=== PATIENT | male | born 1945 | race Caucasian/White ===

== ENCOUNTER → 2018-05-17 11:27 | Outpatient (CLI) | payer MEDICARE, OTHER, SELFPAY ==
[2018-05-17 12:40] LABS: Hemoglobin A1C% w Est Avg Glu 6.5 % (4.0-6.0)
[2018-05-17 12:51] LABS: Alanine Aminotransferase 32 IU/L (21-72); Albumin 4.5 g/dL (3.5-5.0); Alkaline Phosphatase 97 U/L (38-126); Aspartate Aminotransferase 36 IU/L (17-59); BUN Creatinine Ratio 17.5 (6-22); Bilirubin Total 0.8 mg/dL (0.2-1.3); Blood Urea Nitrogen 21 mg/dL (9-20); Carbon Dioxide 33 mmol/L (22-32); Chloride 92 mmol/L (98-107); Estimated Glomerular Filt Rate 59.7 mL/min (>60); Globulin 2.2 g/dL (1.7-4.1); Glucose 74 mg/dL (80-110); HEMOLYSIS < 15 (0-50); Potassium 3.8 mmol/L (3.4-5.1); Sodium 135 mmol/L (137-145); Total Protein 6.7 g/dL (6.3-8.2)
== END ==
PROVIDERS: PCP Internal Medicine; Visit Provider Internal Medicine
DX: E78.5 Hyperlipidemia, unspecified (principal); I10 Essential (primary) hypertension; E11.9 Type 2 diabetes mellitus without complications
CPT/HCPCS: 36415; 80053; 83036

== ENCOUNTER → 2018-10-25 14:16 | Outpatient (CLI) | payer MEDICARE, OTHER, SELFPAY ==
--- NOTE | 2018-10-25 14:34 | DI.RAD.S_ITS ---
PROCEDURE: XR CHEST 2V INDICATIONS: cough TECHNIQUE: 2 views of the chest were acquired. COMPARISON: formerly [facility], CHEST 1 VIEW, 09/06/2016, 18:57. formerly [facility], CHEST 2 VIEW, 03/05/2016, 11:58. FINDINGS: Surgical changes and devices: None. Lungs and pleura: No pleural effusions or pneumothorax. Lungs are clear. Mediastinum: Mediastinal contours are normal. Heart size is normal. Bones and chest wall: No suspicious bony abnormalities. Soft tissues appear unremarkable. IMPRESSION: Normal for age, source of current cough symptoms is not seen. Dictated by: Luís Aguilar M.D. on 10/25/2018 at 15:18 Approved by: Luís Aguilar M.D. on 10/25/2018 at 15:18
[2018-10-25 14:57] LABS: Add Manual Diff / Slide Review NO; Basophils Absolute Auto 100 /uL (0-100); Eosinophils Absolute Auto 300 /uL (0-450); Eosinophils Percent Auto 4.4 % (2-4); Hematocrit 45.5 % (41-53); Hemoglobin 15.3 g/dL (13.5-17.5); Lymphocytes Absolute Auto 1100 /uL (1100-4500); Lymphocytes Percent Auto 18.9 % (25-40); Mean Corpuscular HGB Conc 33.6 % (30-36); Mean Corpuscular Hemoglobin 28.6 PG (26-34); Mean Corpuscular Volume 85.2 fL (80-100); Monocytes Absolute Auto 500 /uL (0-900); Monocytes Percent Auto 8.4 % (3-14); Neutrophils Absolute Auto 3900 /uL (1500-7000); Neutrophils Percent Auto 67.3 % (50-75); Platelet Count 175 X10^3/uL (150-400); Red Blood Cell Count 5.34 X10^6/uL (4.5-5.9); Red Cell Distribution Width 13.9 % (11.6-14.8); White Blood Cell Count 5.8 X10^3/uL (4.5-11.0)
[2018-10-25 15:04] LABS: Hemoglobin A1C% w Est Avg Glu 7.9 % (4.0-6.0)
[2018-10-25 15:58] LABS: Alanine Aminotransferase 42 IU/L (21-72); Albumin 4.5 g/dL (3.5-5.0); Alkaline Phosphatase 91 U/L (38-126); Aspartate Aminotransferase 31 IU/L (17-59); BUN Creatinine Ratio 24.2 (6-22); Bilirubin Total 0.7 mg/dL (0.2-1.3); Blood Urea Nitrogen 29 mg/dL (9-20); Carbon Dioxide 27 mmol/L (22-32); Chloride 95 mmol/L (98-107); Estimated Glomerular Filt Rate 59.5 mL/min (>60); Globulin 2.2 g/dL (1.7-4.1); Glucose 144 mg/dL (80-110); HEMOLYSIS < 15 (0-50); Potassium 3.9 mmol/L (3.4-5.1); Sodium 136 mmol/L (137-145); Total Protein 6.7 g/dL (6.3-8.2)
[2018-11-02 13:54] LABS: Testosterone Free 37.8
[2018-11-02 13:55] LABS: Testosterone Total 241
== END ==
PROVIDERS: PCP Internal Medicine; Visit Provider Internal Medicine
DX: E11.9 Type 2 diabetes mellitus without complications (principal); I10 Essential (primary) hypertension; R05 Cough
CPT/HCPCS: 36415; 71046; 80053; 83036; 84402; 84403; 85025

== ENCOUNTER → 2019-02-21 07:48 | Outpatient (CLI) | payer MEDICARE, OTHER, SELFPAY ==
[2019-02-21 09:16] LABS: Hemoglobin A1C% w Est Avg Glu 6.2 % (4.0-6.0)
[2019-02-21 09:33] LABS: Blood Urea Nitrogen 22 mg/dL (9-20); Calcium 10.3 mg/dL (8.4-10.2); Carbon Dioxide 31 mmol/L (22-32); Chloride 93 mmol/L (98-107); Estimated Glomerular Filt Rate > 60.0 mL/min (>60); Glucose 92 mg/dL (80-110); HEMOLYSIS < 15 (0-50); Potassium 3.8 mmol/L (3.4-5.1); Sodium 134 mmol/L (137-145)
== END ==
PROVIDERS: PCP Internal Medicine; Visit Provider Internal Medicine
DX: E11.65 Type 2 diabetes mellitus with hyperglycemia (principal); I10 Essential (primary) hypertension
CPT/HCPCS: 36415; 80048; 83036

== ENCOUNTER → 2019-07-20 08:57 | Outpatient (CLI) | payer MEDICARE, OTHER, SELFPAY ==
[2019-07-20 10:09] LABS: BUN Creatinine Ratio 13.8 (6-22); Blood Urea Nitrogen 18 mg/dL (9-20); Calcium 9.5 mg/dL (8.4-10.2); Carbon Dioxide 31 mmol/L (22-32); Chloride 94 mmol/L (98-107); Cholesterol 114 mg/dL (140-199); Estimated Glomerular Filt Rate 54.1 mL/min (>60); Glucose 144 mg/dL (80-110); HDL Cholesterol 45 mg/dL (40-60); HEMOLYSIS < 15 (0-50); LDL Cholesterol Calculated 54 mg/dL (<100); Potassium 3.7 mmol/L (3.4-5.1); Sodium 137 mmol/L (137-145); Triglycerides 76 mg/dL (35-150)
[2019-07-20 10:38] LABS: Prostate Specific Antigen Scrn 1.88 ng/mL (0.1-4.0)
== END ==
PROVIDERS: PCP Internal Medicine; Visit Provider Internal Medicine
DX: Z12.5 Encounter for screening for malignant neoplasm of prostate (principal); E11.65 Type 2 diabetes mellitus with hyperglycemia; I10 Essential (primary) hypertension; E78.5 Hyperlipidemia, unspecified
CPT/HCPCS: 36415; 80048; 80061; 83036; G0103

== ENCOUNTER → 2019-08-10 09:07 | Outpatient (CLI) | payer MEDICARE, OTHER, SELFPAY ==
--- NOTE | 2019-08-11 14:35 | PM.PFT.1 ---
Pulmonary Function Test Referral & Results Date Patient Seen: 08/10/19 Requesting provider: Brian Pedraza Results: The spirometry demonstrates an FVC of 3.33 L which is 77% of predicted. The FEV1 was measured at 2.87 L which is 91% of predicted. The FEV1/FVC ratio was 86 which is 117% of predicted. Following the administration of bronchodilator there was no appreciable change. Lung volumes show an SVC of 3.55 L which is 78% of predicted. The diffusing capacity was measured at 29.13 which is 90% of predicted. The maximum voluntary ventilation was normal Interpretation: This study demonstrates slightly reduced lung volumes without evidence of obstructive lung disease. This could also be interpreted as normal Clinical correlation suggested
== END ==
PROVIDERS: PCP Internal Medicine; Visit Provider Internal Medicine
DX: R06.02 Shortness of breath (principal)
CPT/HCPCS: 94060; 94726; 94729

== ENCOUNTER → 2019-08-17 09:37 | Outpatient (CLI) | payer MEDICARE, OTHER, SELFPAY ==
--- NOTE | 2019-08-17 09:41 | DI.RAD.S_ITS ---
PROCEDURE: XR CHEST 2V INDICATIONS: Wheezing, dyspnea TECHNIQUE: 2 views of the chest were acquired. COMPARISON: [facility], CR, XR CHEST 2V, 10/25/2018, 14:35. FINDINGS: Surgical changes and devices: None. Lungs and pleura: Lungs are clear. No pleural effusions or pneumothorax. Mediastinum: Mediastinal contours are normal. Heart size is normal. Bones and chest wall: No suspicious bony abnormalities. Chronic right rib fractures as before Soft tissues appear unremarkable. IMPRESSION: No acute disease Dictated by: Barry Darden M.D. on 08/17/2019 at 11:07 Approved by: Barry Darden M.D. on 08/17/2019 at 11:08
== END ==
PROVIDERS: PCP Internal Medicine; Visit Provider Internal Medicine
DX: R06.2 Wheezing (principal); R06.00 Dyspnea, unspecified
CPT/HCPCS: 71046

== ENCOUNTER → 2019-08-29 07:46 | Outpatient (CLI) | payer MEDICARE, OTHER, SELFPAY ==
--- NOTE | 2019-08-29 07:47 | DI.ECHO.S_ITS ---
[facility]+ [facility] +---------+ : : [address] : [place] [address] : : : : [id number] : : : : Phone: [phone]+ Echocardiogram Report + + :Name: EDY POLANCO Study Date: 08/29/2019 Height: 70 in : :[employer] Weight: 210 lb : : Gender: Male BSA: 2.1 m2 : :: 1945 Age: 74 yrs BP: 142/88 mmHg: :Reason For Study: DYSPNEA : : Performed By: [facility] Staff : :Referring: VEDA MARRERO R : + + Interpretation Summary 1) Normal left ventricular size, wall motion, and systolic function (EF 55- 60%). 2) Normal right ventricular size and function. 3) No significant valvular abnormalities. 4) Pulmonary artery pressures cannot be estimated because of the lack of a measurable TR jet velocity. 5) No prior Echo available for comparison. Procedure: A two-dimensional transthoracic echocardiogram with color flow and Doppler was performed. The study quality was technically adequate. Prior echo performed on 08/28/16. The patient was in normal sinus rhythm during the exam. Left Ventricle: The left ventricle is normal in size. There is mild concentric left ventricular hypertrophy. Left ventricular systolic function is normal. The ejection fraction is estimated to be 55-60%. Left ventricular wall motion is normal. Right Ventricle: The right ventricle is normal size. Right ventricular systolic function is at the lower limits of normal. Atria: The left atrial size is normal. Right atrial size is normal. The interatrial septum is intact with no evidence for an atrial septal defect. Mitral Valve: The mitral valve leaflets appear mildly thickened, but open well. There is trace mitral regurgitation. Aortic Valve: The aortic valve is trileaflet. The aortic valve opens well. There is no aortic valve stenosis. No aortic regurgitation is present. Tricuspid Valve: The tricuspid valve is normal in structure and function. There is trace tricuspid regurgitation. Pulmonary artery pressures cannot be estimated because of the lack of a measurable TR jet velocity. Pulmonic Valve: The pulmonic valve is not well visualized. There is trace pulmonic regurgitation. Great Vessels: The aortic root is normal size. The ascending aorta is at the upper limits of normal in size. The pulmonary artery is normal size. The inferior vena cava was not well visualized. Pericardium/ Pleura There is no pericardial effusion. There is no pleural effusion. MMode/2D Measurements & Calculations LVIDd: 4.3 cm LVOT diam: 2.2 cm LVIDs: 3.0 cm Ao root diam: 3.2 cm FS: 29.7 % Aortic Jxn: 2.9 cm EPSS: 0.70 cm asc Aorta Diam: 3.7 cm IVSd: 1.5 cm LVPWd: 1.2 cm LV collado. diameter/BSA (cm/m^2): 2.0 LV sys. diameter/BSA (cm/m^2): 1.4 LA A2 area: 18.1 cm2 RA long axis: 4.5 cm LA A4 area: 23.2 cm2 RA area: 10.5 cm2 LA length (vol): 5.4 cm RA vol: 20.9 ml LA vol: 66.2 ml RA : 9.8 ml/m2 LA vol index: 31.1 ml/m2 TAPSE: 1.7 cm Doppler Measurements & Calculations Ao V2 max: 89.8 cm/sec LVOT Max Stevan: 75.6 cm/sec Ao V2 mean: 61.0 cm/sec LV V1 max P.3 mmHg Ao max P.2 mmHg LV V1 VTI: 19.9 cm Ao mean P.7 mmHg TEA(I,D): 4.0 cm2 Ao V2 VTI: 18.3 cm TEA(V,D): 3.1 cm2 sev ratio: 1.1 TEA indexed to BSA (cm^2/m^2): 1.9 MV E max stevan: 59.9 cm/sec PA V2 max: 64.2 cm/sec MV A max stevan: 80.4 cm/sec PA V2 mean: 42.0 cm/sec MV E/A: 0.75 PA mean P.83 mmHg Med Peak E' Stevan: 4.7 cm/sec PA Accel Time: 0.08 sec E/E' med: 12.6 Lat Peak E' Stevan: 6.6 cm/sec E/E' lat: 9.1 E/e' average: 10.8 MV dec time: 0.21 sec SV(LVOT): 73.5 ml Reading Physician:09:14 AM
== END ==
PROVIDERS: PCP Internal Medicine; Visit Provider Internal Medicine
DX: R06.00 Dyspnea, unspecified (principal); R06.2 Wheezing
CPT/HCPCS: 93306

== ENCOUNTER → 2020-01-16 08:31 | Outpatient (CLI) | payer MEDICARE, OTHER, SELFPAY ==
[2020-01-16 09:43] LABS: Hemoglobin A1C% w Est Avg Glu 5.9 % (4.0-6.0)
[2020-01-16 09:49] LABS: BUN Creatinine Ratio 25.2 (6-22); Blood Urea Nitrogen 30 mg/dL (9-20); Calcium 10.4 mg/dL (8.4-10.2); Carbon Dioxide 30 mmol/L (22-32); Chloride 96 mmol/L (98-107); Estimated Glomerular Filt Rate 59.9 mL/min (>60); Glucose 226 mg/dL (80-110); HEMOLYSIS < 15 (0-50); Potassium 3.6 mmol/L (3.4-5.1); Sodium 133 mmol/L (137-145)
== END ==
PROVIDERS: PCP Internal Medicine; Referring Provider Internal Medicine; Visit Provider Internal Medicine
DX: E11.9 Type 2 diabetes mellitus without complications (principal); I10 Essential (primary) hypertension
CPT/HCPCS: 36415; 80048; 83036

== ENCOUNTER 2020-03-18 21:48 | Emergency (ER) | payer MEDICARE, OTHER, SELFPAY ==
--- NOTE | 2020-03-18 21:51 | ED_ITS ---
HPI - Head Injury General Chief complaint: Head Injury Stated complaint: Had Fall, Hit Head on Rock, Sore and Dizzy Time Seen by Provider: 03/18/20 21:51 Source: patient Mode of arrival: Ambulatory Limitations: no limitations History of Present Illness HPI Narrative: Former smoker with history of hypertension presents with a chief complaint of a fall with head injury and headache. He was in his normal state of health when walking at a local beach and he tripped and fell forward and hit the side of his head. He denies loss of consciousness nor nausea or vomiting. He denies any use of blood thinners Related Data Home Medications Medication Instructions Recorded Confirmed ASPIRIN (Aspirin EC) 81 mg PO Q DAY #0 06/10/11 01/22/20 Previous Rx's Medication Instructions Recorded Glucose: Home Monitoring Kit kit #1 02/02/17 atorvastatin [Lipitor] 20 mg PO QDAY #90 tab 05/08/19 metoprolol succinate [Toprol XL] 100 mg PO QDAY #90 tab 05/12/19 metformin 1,000 mg tablet See Rx Instructions .ROUTE 08/28/19 .COMPLEX #60 tablet carbidopa ER 50 mg-levodopa 200 mg See Rx Instructions .ROUTE 09/04/19 tablet,extended release .COMPLEX #180 tablet ropinirole 0.5 mg tablet See Rx Instructions .ROUTE 09/04/19 .COMPLEX #180 tablet omeprazole 40 mg capsule,delayed See Rx Instructions .ROUTE 12/15/19 release .COMPLEX #60 capsule lisinopril 40 mg tablet See Rx Instructions .ROUTE 02/07/20 .COMPLEX #90 tablet hydrochlorothiazide 25 mg tablet 25 mg PO QDAY #90 tab 02/26/20 sildenafil 100 mg tablet 100 mg PO DAILY PRN #10 tab 03/11/20 Allergies Allergy/AdvReac Type Severity Reaction Status Date / Time oxycodone [OXYCODONE] Allergy Intermediate mental Verified 01/22/20 09:40 change Review of Systems Constitutional Constitutional: Denies chills, Denies fatigue, Denies fever(s), Denies frequent falls, Reports headache(s), Denies lethargy and Denies weakness Eyes Eyes: Denies change in vision, Denies eye discharge, Denies irritation and Denies loss of vision ENT Ears, Nose, Mouth, and Throat: Denies change in voice, Denies dizziness, Reports headache(s), Denies neck pain, Denies sore throat and Denies throat swelling Cardiovascular Cardiovascular: Denies chest pain, Denies irregular heart rhythm, Denies lightheadedness, Denies palpitations, Denies dyspnea, Denies dyspnea on exertion and Denies orthopnea Respiratory Respiratory: Denies cough, Denies dyspnea, Denies dyspnea on exertion and Denies wheezing Gastrointestinal Gastrointestinal: Denies abdominal pain, Denies change in bowel habits, Denies diarrhea, Denies nausea and Denies vomiting Musculoskeletal Musculoskeletal: Denies neck pain and Denies numbness Integumentary/Breasts Skin/Breast: Denies pruritus, Denies erythema, Denies rash and Denies wounds Neurologic Neurologic: Denies behavioral changes, Denies confusion, Denies dizziness, Denies frequent falls, Reports headache(s), Denies loss of vision, Denies numbness and Denies weakness Psychiatric Psychiatric: Denies anxiety, Denies behavioral changes, Denies confusion, Denies depression, Denies homicidal ideation and Denies suicidal ideation Endocrine Endocrine: Denies fatigue, Denies flushing and Denies palpitations Hematologic/Lymphatic Hematologic/Lymphatic: Denies easy bruising Allergic/Immunologic Allergic/Immunologic: Denies urticaria, Denies throat swelling and Denies wheezing Patient History Medical History Chronic renal failure, stage 2 (mild) (Chronic) Controlled type 2 diabetes mellitus without complication (Chronic 09/29/11) Diverticulosis of large intestine (Inactive 06/10/11) Erectile dysfunction (Chronic) Gastroesophageal reflux disease (Chronic 06/10/11) Hyperlipidemia (Chronic 06/10/11) Hypertension (Chronic 06/10/11) Restless leg syndrome (Chronic) Family History Mother Type II diabetes mellitus Social History marital status: number of children: 2 household members: spouse lives independently: Yes caregiver/support person: No housing: house pets and animals: No education level: college occupational status: other (Retired) Previous occupational history: [employer]/confucianism: [employer] travel history: recent (Fishing trip in [place]) and over 6 months ago (Last July in [place].) 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 Well- nourished, well-developed patient, in mild distress. GCS 15 HEAD: Very minimal palpable contusion of right temporal region EYES: Pupils equal round and reactive. Extraocular motions intact. No scleral icterus. No injection or drainage. No hyphema ENT: Nose without bleeding, purulent drainage. Throat without erythema, tons illar hypertrophy or exudate. Airway patent. NECK: Trachea midline. Non tender CARDIOVASCULAR: Regular rate and rhythm without murmurs, gallops, or rubs. RESPIRATORY: Clear to auscultation. Breath sounds equal bilaterally. No wheezes, rales, or rhonchi. GASTROINTESTINAL: Abdomen soft, non-tender, nondistended. EXTREMITIES: No edema or joint tenderness. BACK: Nontender without deformity or crepitance. No flank tenderness. NEURO: AOx3. SKIN: No rash or erythema of visible areas Initial Vital Signs Initial Vital Signs: Vital Signs Temperature 98.0 F 03/18/20 21:56 Pulse Rate 70 03/18/20 21:56 Respiratory Rate 16 03/18/20 21:56 Blood Pressure 180/85 H 03/18/20 21:56 Pulse Oximetry 99 03/18/20 21:56 Course Orders Ordered: ED Orders 03/18/20 21:59 CT head/brain wo con Stat Discontinued Medications Diphtheria/Tetanus/Acell Pertussis (Adacel) 0.5 ml IM .ONCE ONE Stop: 03/18/20 22:00 Last Admin: 03/18/20 22:15 Dose: 0.5 ml Documented by: JUAN Vital Signs Vital signs: Vital Signs - 8 hr 03/18/20 21:56 03/18/20 22:28 03/18/20 23:05 Temperature 98.0 F Pulse Rate 70 69 65 Respiratory Rate 16 18 18 Blood Pressure 180/85 H Blood Pressure [Right Arm] 146/75 H 152/80 H Pulse Oximetry 99 98 98 MDM - Head Injury Imaging Data CT scan - head: Radiologist's Impression: no bleed Discharge Plan Departure Patient Disposition: Home Clinical Impression: Closed head injury, Concussion without loss of consciousness Concussion Qualifiers: Encounter type: initial encounter Loss of consciousness presence/duration: without LOC Qualified Code(s): S06.0X0A - Concussion without loss of consciousness, initial encounter Discharge Date/Time: 03/18/20 23:40 Activity Restrictions/Additional Instructions: You have a slight concussion and will likely have a mild headache and some nausea for a few days. Avoiding highly stimulating activities and even TV or computers may be helpful in minimizing your symptoms. Avoid activities that will put you at risk for another head injury for at least a week. You can take tylenol or motrin for headache or the prescription Return for worsening or pe rsistent symptoms Please call your eye doctor tomorrow to get seen in follow up within a day or two. I think it would be helpful to get a dilated eye exam. Prescriptions: No Action ASPIRIN (Aspirin EC) 81 mg PO Q DAY Qty: 0 RF: 0 Glucose: Home Monitoring Kit Qty: 1 RF: 0 atorvastatin [Lipitor] 20 mg tablet 20 mg PO QDAY Qty: 90 RF: 3 metoprolol succinate [Toprol XL] 100 mg tablet extended release 24 hr 100 mg PO QDAY Qty: 90 RF: 3 metformin 1,000 mg tablet See Rx Instructions .ROUTE .COMPLEX Qty: 60 RF: 11 ropinirole 0.5 mg tablet See Rx Instructions .ROUTE .COMPLEX Qty: 180 RF: 3 carbidopa-levodopa 50-200 mg tablet extended release See Rx Instructions .ROUTE .COMPLEX Qty: 180 RF: 3 omeprazole 40 mg capsule,delayed release(DR/EC) See Rx Instructions .ROUTE .COMPLEX Qty: 60 RF: 3 lisinopril 40 mg tablet See Rx Instructions .ROUTE .COMPLEX Qty: 90 RF: 1 hydrochlorothiazide 25 mg tablet 25 mg PO QDAY Qty: 90 RF: 3 sildenafil 100 mg tablet 100 mg PO DAILY PRN (Reason: sexual activity) Qty: 10 RF: 0 Referrals: Brian Pedraza MD [Primary Care Provider] -
[2020-03-18 21:56] VITALS: BP 180/85; PULSE 70; RESP 16; TEMP 36.7; O2SAT 99; BMI 26.8
--- NOTE | 2020-03-18 21:59 | DI.CT.S_ITS ---
PROCEDURE: CT HEAD/BRAIN WO CON INDICATIONS: fall, head injury, severe headache, vision change, aspirin TECHNIQUE: Noncontrast 4.5 mm thick angled axial sections acquired from the foramen magnum to the vertex, with coronal and sagittal reformats. For radiation dose reduction, the following was used: automated exposure control, adjustment of mA and/or kV according to patient size. COMPARISON: None. FINDINGS: Image quality: Excellent. CSF spaces: Basal cisterns are patent. No extra-axial fluid collections. The ventricles are symmetric in size and shape. Brain: No intracranial bleeds or masses. There is cerebral volume loss for age, with resultant ventricular and sulcal prominence. There are periventricular and deep white matter chronic small vessel ischemic changes. There is intracranial internal carotid artery and vertebral artery atherosclerosis. Skull and face: Calvarium and visualized facial bones appear intact, without suspicious lesions. Sinuses: Visualized sinuses and mastoids are clear. IMPRESSION: No acute intracranial disease process. Dictated by: Shakira Diaz MD, PhD on 03/19/2020 at 7:34 Approved by: Shakira Diaz MD, PhD on 03/19/2020 at 7:35
[2020-03-18] MEDS: TET,DIPH,PERTUSS(ACELL),VAC/PF 0.5 ML SYRINGE IM (22:15)
[2020-03-18 22:28] VITALS: BP 146/75; PULSE 69; RESP 18; O2SAT 98
[2020-03-18 23:05] VITALS: BP 152/80; PULSE 65; RESP 18; O2SAT 98
== END 2020-03-18 23:40 | disposition home or self-care (01) ==
PROVIDERS: Emergency Provider Emergency Medicine; PCP Internal Medicine
DX: S06.0X0A Concussion without loss of consciousness, initial encounter (principal); W01.0XXA Fall on same level from slipping, tripping and stumbling without subsequent striking against object, initial encounter; Z23 Encounter for immunization
CPT/HCPCS: 70450; 90471; 99284; 90715

== ENCOUNTER 2020-03-26 10:59 | Emergency (ER) | payer MEDICARE, OTHER, SELFPAY ==
[2020-03-26 11:06] VITALS: BP 145/70; PULSE 67; RESP 16; TEMP 36.7; O2SAT 100
--- NOTE | 2020-03-26 11:11 | ED_ITS ---
HPI - General Adult General Chief complaint: Headache Stated complaint: head injury a week ago Time Seen by Provider: 03/26/20 11:04 Source: patient Mode of arrival: Ambulatory Limitations: no limitations History of Present Illness HPI narrative: Patient is a 74-year-old male not on anticoagulation who approximately 1 week ago had a mechanical fall where he hit the right side of his head on some rocks. There was no loss of consciousness. He was seen in the emergency department after the event. Had a head CT which was unremarkable. The next day followed up with his eye doctor because he was having some vision issues. Patient states that his eye doctor told him everything was unremarkable and he does have a follow-up later this week with his eye provider. Patient states that over the past week he has had continued headaches. No nausea. No mood swings. No vomiting. Has had occasional changes in his vision which he describes as a blurry sensation off to the right. This is not consistent. He states he has had a continuous headache over the past week or there are times when his headache gets worse. He does not feel like any of his other symptoms worsen when his headache is worse. He did sleep longer than what he normally does last evening. Called his primary doctor today who sent him to the emergency department for concerns that he may need another head CT. Related Data Home Medications Medication Instructions Recorded Confirmed ASPIRIN (Aspirin EC) 81 mg PO Q DAY #0 06/10/11 01/22/20 Previous Rx's Medication Instructions Recorded Glucose: Home Monitoring Kit kit #1 02/02/17 atorvastatin [Lipitor] 20 mg PO QDAY #90 tab 05/08/19 metoprolol succinate [Toprol XL] 100 mg PO QDAY #90 tab 05/12/19 metformin 1,000 mg tablet See Rx Instructions .ROUTE 08/28/19 .COMPLEX #60 tablet carbidopa ER 50 mg-levodopa 200 mg See Rx Instructions .ROUTE 09/04/19 tablet,extended release .COMPLEX #180 tablet ropinirole 0.5 mg tablet See Rx Instructions .ROUTE 09/04/19 .COMPLEX #180 tablet omeprazole 40 mg capsule,delayed See Rx Instructions .ROUTE 12/15/19 release .COMPLEX #60 capsule lisinopril 40 mg tablet See Rx Instructions .ROUTE 02/07/20 .COMPLEX #90 tablet hydrochlorothiazide 25 mg tablet 25 mg PO QDAY #90 tab 02/26/20 sildenafil 100 mg tablet 100 mg PO DAILY PRN #10 tab 03/11/20 Allergies Allergy/AdvReac Type Severity Reaction Status Date / Time oxycodone [OXYCODONE] Allergy Intermediate mental Verified 03/26/20 11:16 change Review of Systems Constitutional Constitutional: Denies difficulty sleeping, Reports fatigue, Denies fever(s), Denies frequent falls, Reports headache(s) and Denies weakness Eyes Eyes: Reports change in vision ENT Ears, Nose, Mouth, and Throat: Denies vertigo, Denies dizziness, Reports headache(s), Reports disequilibrium and Denies sore throat Cardiovascular Cardiovascular: Denies chest pain and Denies dyspnea Respiratory Respiratory: Denies dyspnea Gastrointestinal Gastrointestinal: Denies abdominal pain, Denies change in bowel habits, Denies diarrhea and Denies nausea Musculoskeletal Musculoskeletal: Denies arthralgias and Denies myalgias Integumentary/Breasts Skin/Breast: Denies rash Neurologic Neurologic: Denies abnormal movements, Denies abnormal speech, Denies behavioral changes, Denies confusion, Denies vertigo, Denies dizziness, Denies frequent falls, Reports headache(s), Reports disequilibrium and Denies weakness Psychiatric Psychiatric: Denies behavioral changes and Denies confusion Endocrine Endocrine: Reports fatigue Hematologic/Lymphatic Hematologic/Lymphatic: Denies easy bleeding and Denies easy bruising Patient History Medical History Chronic renal failure, stage 2 (mild) (Chronic) Controlled type 2 diabetes mellitus without complication (Chronic 09/29/11) Diverticulosis of large intestine (Inactive 06/10/11) Erectile dysfunction (Chronic) Gastroesophageal reflux disease (Chronic 06/10/11) Hyperlipidemia (Chronic 06/10/11) Hypertension (Chronic 06/10/11) Restless leg syndrome (Chronic) Family History Mother Type II diabetes mellitus Social History marital status: number of children: 2 household members: spouse lives independently: Yes caregiver/support person: No housing: house pets and animals: No education level: college occupational status: other (Retired) Previous occupational history: [employer]/congregational: Nondenominational travel history: recent (Fishing trip in [place]) and over 6 months ago (Last July in [place].) 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[employer].), fishing, reading and other (Taking Care of spouse, yard work, motorcycle, wood shop.) Smoking Status: Former smoker Tobacco: How many years used: 5 Smokeless tobacco user: other (Cigarettes) quit status: quit date established (1970) second hand exposure: Yes (Childhood.) alcohol intake: current (Rarely.) substance use type: does not use Smoking Status: Former smoker alcohol intake frequency: 0-2 drinks per day Substance Use Type: does not use Exam Initial Vital Signs Initial Vital Signs: Vital Signs Temperature 98.1 F 03/26/20 11:06 Pulse Rate 67 03/26/20 11:06 Respiratory Rate 16 03/26/20 11:06 Blood Pressure 145/70 H 03/26/20 11:06 Pulse Oximetry 100 03/26/20 11:06 Const General: cooperative, healthy appearing, comfortable, well developed, well groomed and No acute distress Limitations: mental status not altered HENMT Head: normal to inspection and normocephalic Ears: hearing grossly normal bilaterally Mouth: oral mucosae normal Eyes Pupils: PERRL EOM: EOM intact bilaterally Resp Effort & Inspection: normal respiratory effort Auscultation: clear to auscultation bilaterally Cardio Rate: regular rate Rhythm: regular rhythm Skin Lesions: no lesions Rashes: no rashes Neuro General: patient alert, patient awake and patient oriented x3 Cranial Nerves: CN's II-XI intact bilaterally Cognition: normal cognition Speech: speech normal Motor: muscle tone normal throughout Sensory Exam: no sensory deficits noted Extrem General: normal to inspection and capillary refill normal Psych Appearance: grossly normal and well kempt Scores GCS Letty coma scale eye opening: Spontaneous Letty coma scale verbal response: Orientated [facility] coma scale motor response: Obey commands [facility] coma scale total score: 15 Course Vital Signs Vital signs: Vital Signs - 8 hr 03/26/20 11:06 Temperature 98.1 F Pulse Rate 67 Respiratory Rate 16 Blood Pressure 145/70 H Pulse Oximetry 100 Medical Decision Making [facility] Narrative Medical decision making narrative: GCS of 15. Alert oriented x3. Normal neurologic exam. One week out from his mechanical fall. Not on blood thinners. His history and physical exam is very consistent with a post concussive syndrome. No indication for repeat head CT. Spent an extensive amount of time talking about post concussive syndromes with the patient. He has a follow-up with his eye provider on Wednesday this week. He was given reassurance. He was given return precautions and follow-up instructions. He expressed understanding and agreement. Discharge Plan Departure Patient Disposition: Home Clinical Impression: Post concussion syndrome Instructions: DI for Postconcussion Syndrome Activity Restrictions/Additional Instructions: You can take Tylenol for any headaches. Recommend you keep all of your scheduled medical appointments. You have no restrictions on your activity other than avoiding activities that make your symptoms worse. Contact your primary provider for follow-up. Prescriptions: No Action ASPIRIN (Aspirin EC) 81 mg PO Q DAY Qty: 0 RF: 0 Glucose: Home Monitoring Kit Qty: 1 RF: 0 atorvastatin [Lipitor] 20 mg tablet 20 mg PO QDAY Qty: 90 RF: 3 metoprolol succinate [Toprol XL] 100 mg tablet extended release 24 hr 100 mg PO QDAY Qty: 90 RF: 3 metformin 1,000 mg tablet See Rx Instructions .ROUTE .COMPLEX Qty: 60 RF: 11 ropinirole 0.5 mg tablet See Rx Instructions .ROUTE .COMPLEX Qty: 180 RF: 3 carbidopa-levodopa 50-200 mg tablet extended release See Rx Instructions .ROUTE .COMPLEX Qty: 180 RF: 3 omeprazole 40 mg capsule,delayed release(DR/EC) See Rx Instructions .ROUTE .COMPLEX Qty: 60 RF: 3 lisinopril 40 mg tablet See Rx Instructions .ROUTE .COMPLEX Qty: 90 RF: 1 hydrochlorothiazide 25 mg tablet 25 mg PO QDAY Qty: 90 RF: 3 sildenafil 100 mg tablet 100 mg PO DAILY PRN (Reason: sexual activity) Qty: 10 RF: 0 Referrals: Brian Pedraza MD [Primary Care Provider] -
== END 2020-03-26 11:39 | disposition home or self-care (01) ==
PROVIDERS: Emergency Provider Emergency Medicine; PCP Internal Medicine
DX: F07.81 Postconcussional syndrome (principal)
CPT/HCPCS: 99281

== ENCOUNTER → 2020-07-18 15:57 | Outpatient (CLI) | payer MEDICARE, OTHER, SELFPAY ==
[2020-07-18 16:18] LABS: Hemoglobin A1C% w Est Avg Glu 6.7 % (4.0-6.0)
[2020-07-18 16:32] LABS: Alanine Aminotransferase 24 IU/L (<50); Albumin 4.1 g/dL (3.5-5.0); Albumin Globulin Ratio 1.9 (1.0-2.8); Alkaline Phosphatase 108 U/L (38-126); Aspartate Aminotransferase 25 IU/L (17-59); BUN Creatinine Ratio 21.5 (6-22); Bilirubin Total 0.5 mg/dL (0.2-1.3); Blood Urea Nitrogen 26 mg/dL (9-20); Calcium 9.9 mg/dL (8.4-10.2); Carbon Dioxide 33 mmol/L (22-32); Chloride 96 mmol/L (98-107); Estimated Glomerular Filt Rate 58.6 mL/min (>60); Globulin 2.2 g/dL (1.7-4.1); Glucose 163 mg/dL (80-110); HEMOLYSIS < 15 (0-50); Potassium 3.6 mmol/L (3.4-5.1); Sodium 133 mmol/L (137-145); Total Protein 6.3 g/dL (6.3-8.2)
== END ==
PROVIDERS: PCP Internal Medicine; Referring Provider Internal Medicine; Visit Provider Internal Medicine
DX: E11.9 Type 2 diabetes mellitus without complications (principal); I10 Essential (primary) hypertension
CPT/HCPCS: 36415; 80053; 83036

== ENCOUNTER → 2020-10-18 08:39 | Outpatient (CLI) | payer MEDICARE, OTHER, SELFPAY ==
[2020-10-18 09:59] LABS: Hemoglobin A1C% w Est Avg Glu 7.3 % (4.0-6.0)
[2020-10-18 10:29] LABS: Blood Urea Nitrogen 22 mg/dL (9-20); Carbon Dioxide 34 mmol/L (22-32); Chloride 99 mmol/L (98-107); Estimated Glomerular Filt Rate > 60.0 mL/min (>60); Glucose 143 mg/dL (80-110); HEMOLYSIS < 15 (0-50); Potassium 3.5 mmol/L (3.4-5.1); Sodium 134 mmol/L (137-145)
== END ==
PROVIDERS: PCP Internal Medicine; Referring Provider Internal Medicine; Visit Provider Internal Medicine
DX: E11.65 Type 2 diabetes mellitus with hyperglycemia (principal); I10 Essential (primary) hypertension
CPT/HCPCS: 36415; 80048; 83036

== ENCOUNTER → 2021-01-20 08:27 | Outpatient (CLI) | payer MEDICARE, OTHER, SELFPAY ==
[2021-01-20 09:07] LABS: Blood Urea Nitrogen 22 mg/dL (9-20); Calcium 9.9 mg/dL (8.4-10.2); Carbon Dioxide 30 mmol/L (22-32); Chloride 97 mmol/L (98-107); Estimated Glomerular Filt Rate > 60.0 mL/min (>60); Glucose 145 mg/dL (80-110); HEMOLYSIS < 15 (0-50); Potassium 3.4 mmol/L (3.4-5.1); Sodium 133 mmol/L (137-145)
== END ==
PROVIDERS: PCP Internal Medicine; Referring Provider Internal Medicine; Visit Provider Internal Medicine
DX: E11.65 Type 2 diabetes mellitus with hyperglycemia (principal); N18.2 Chronic kidney disease, stage 2 (mild)
CPT/HCPCS: 36415; 80048; 83036

== ENCOUNTER → 2021-02-25 14:56 | Outpatient (CLI) | payer MEDICARE, OTHER, SELFPAY ==
--- NOTE | 2021-02-25 15:01 | DI.RAD.S_ITS ---
PROCEDURE: XR THORACIC SPINE 3V INDICATIONS: posterior back pain TECHNIQUE: 3 views of the thoracic spine were acquired. COMPARISON: [facility], , THORACIC SPINE 3 VIEWS, 03/05/2016, 12:00. FINDINGS: Bones: No fractures or dislocations. No suspicious bony lesions. 12 pairs of ribs are noted, and appear intact where visualized. Multilevel disc desiccation is present throughout the thoracic spine. Minimal anterior osteophytes are present. Soft tissues: No paravertebral stripe thickening. IMPRESSION: Disc space narrowing anterior osteophytes. No visualized acute fracture or dislocation. However, if clinical concern and/or pain persist, short interval imaging followup in 7-10 days is recommended, as occult injury cannot be definitively excluded. Dictated by: Khushboo Mills M.D. on 02/25/2021 at 17:23 Approved by: Khushboo Mills M.D. on 02/25/2021 at 17:24
== END ==
PROVIDERS: PCP Internal Medicine; Referring Provider Registered Nurse; Visit Provider Registered Nurse
DX: M54.9 Dorsalgia, unspecified (principal)
CPT/HCPCS: 72072

== ENCOUNTER → 2021-03-22 09:52 | Outpatient (CLI) | payer MEDICARE, OTHER, SELFPAY ==
--- NOTE | 2021-03-22 09:54 | DI.MRI.S_ITS ---
PROCEDURE: MR SHOULDER RT WO CON INDICATIONS: right shouldre pain TECHNIQUE: Noncontrast oblique coronal T2 fast spin echo with fat saturation, oblique sagittal T1 spin echo and T2 fast spin echo with fat saturation, axial T1 spin echo and T2 fast spin echo with fat saturation through the shoulder. COMPARISON: None. FINDINGS: Image quality: Excellent. Rotator cuff: Partial thickness tear of the distal supraspinatus and infraspinatus tendons involving the articular surface. There is subscapularis tendinitis. Sagittal images demonstrate no rotator cuff muscle atrophy. Bones and bursae: No bone marrow contusions or fractures. Moderate acromioclavicular and glenohumeral joint degeneration. The acromion demonstrates conventional anatomy, without an os acromiale. No pathologic subacromial-subdeltoid or subcoracoid bursal fluid is present. Small glenohumeral joint effusion. Capsule and soft tissues: There is degenerative fraying of the glenoid labrum. Small paralabral cyst adjacent to the inferior labrum. The long head of the biceps tendon demonstrates normal location and morphology. The rotator interval appears normal, without fibrosis. The coracohumeral ligament is normal in thickness. IMPRESSION: 1. Partial thickness tear of the distal supraspinatus and infraspinatus tendons along the articular surface. 2. Subscapularis tendinitis. 3. Moderate acromioclavicular and glenohumeral joint degeneration. 4. Small glenohumeral joint effusion. 5. Degenerative fraying of the glenoid labrum. Small paralabral cyst adjacent to the inferior labrum indicating small labral tears. Dictated by: Amparo Vela M.D. on 03/24/2021 at 8:29 Approved by: Amparo Vela M.D. on 03/24/2021 at 9:43
== END ==
PROVIDERS: PCP Internal Medicine; Referring Provider Registered Nurse; Visit Provider Registered Nurse
DX: M25.511 Pain in right shoulder (principal); M75.111 Incomplete rotator cuff tear or rupture of right shoulder, not specified as traumatic; M75.91 Shoulder lesion, unspecified, right shoulder; M19.011 Primary osteoarthritis, right shoulder; M25.411 Effusion, right shoulder
CPT/HCPCS: 73221

== ENCOUNTER → 2021-03-25 11:18 | Outpatient (CLI) | payer MEDICARE, OTHER, SELFPAY ==
--- NOTE | 2021-03-25 11:19 | DI.MRI.S_ITS ---
PROCEDURE: MR THORACIC SPINE WO CON INDICATIONS: Thoracic pain TECHNIQUE: Noncontrast sagittal T1 spine echo and T2 fast spin echo, sagittal STIR, axial T1 and T2 fast spin echo through the thoracic spine. COMPARISON: None. FINDINGS: Image quality: Excellent. Alignment and Curvature: There is normal bony alignment. Bone Marrow: Marrow is of normal overall signal. No acute vertebral body compression fractures. Spinal Cord: Visualized spinal cord is normal in size and signal. There is a moderate degree of degenerative disc disease from T4 through T11, with disc height reduction and posterior disc bulging. Facet osteoarthritis is moderate at T10-T11 greater on the right than the left with asymmetric mild spinal stenosis at this level associated with this posterior mild impingement. More superiorly the transverse broad-base disc bulge is efface CSF from the anterior thecal sac to a mild degree but do not distort the adjacent cord. Paraspinous Soft Tissues: No paravertebral masses. Miscellaneous: On axial images, central canal and foramina appear widely patent at all scanned levels. IMPRESSION: No compression fracture found, no chronic or recent trauma suspected. [id number] degenerative disc disease present along the thoracic spine from T3 inferiorly to T11. As discussed above this produces a mild degree of anterior spinal stenosis at the disc levels, but no disc herniation is found. Mild spinal stenosis is also seen at T10-T11 from posterior approach due to asymmetric right greater than left facet osteoarthritis. Dictated by: Luís Aguilar M.D. on 03/25/2021 at 12:29 Approved by: Luís Aguilar M.D. on 03/25/2021 at 12:34
== END ==
PROVIDERS: PCP Internal Medicine; Referring Provider Registered Nurse; Visit Provider Registered Nurse
DX: M51.34 Other intervertebral disc degeneration, thoracic region (principal); M48.04 Spinal stenosis, thoracic region
CPT/HCPCS: 72146

== ENCOUNTER → 2021-06-13 10:31 | Outpatient (CLI) | payer MEDICARE, OTHER, SELFPAY ==
[2021-06-13 11:55] LABS: BUN Creatinine Ratio 22.4 (6-22); Blood Urea Nitrogen 22 mg/dL (9-20); Carbon Dioxide 32 mmol/L (22-32); Chloride 99 mmol/L (98-107); Estimated Glomerular Filt Rate > 60.0 mL/min (>60); Glucose 117 mg/dL (80-110); HEMOLYSIS < 15 (0-50); Potassium 3.6 mmol/L (3.4-5.1); Sodium 135 mmol/L (137-145)
[2021-06-13 20:17] LABS: Hemoglobin A1C% w Est Avg Glu 6.3 % (4.0-6.0)
[2021-06-17 14:41] LABS: Prostate Specific Antigen Scrn 1.71 ng/mL (0.1-4.0)
== END ==
PROVIDERS: PCP Internal Medicine; Referring Provider Internal Medicine; Visit Provider Internal Medicine
DX: N18.2 Chronic kidney disease, stage 2 (mild) (principal); E11.9 Type 2 diabetes mellitus without complications; Z12.5 Encounter for screening for malignant neoplasm of prostate; I10 Essential (primary) hypertension; E78.5 Hyperlipidemia, unspecified
CPT/HCPCS: 36415; 80048; 83036; G0103

== ENCOUNTER → 2021-09-12 09:12 | Outpatient (CLI) | payer MEDICARE, OTHER, SELFPAY ==
[2021-09-12 10:32] LABS: Hemoglobin A1C% w Est Avg Glu 6.6 % (4.0-6.0)
[2021-09-12 10:44] LABS: BUN Creatinine Ratio 17.3 (6-22); Blood Urea Nitrogen 18 mg/dL (9-20); Calcium 9.3 mg/dL (8.4-10.2); Carbon Dioxide 33 mmol/L (22-32); Chloride 91 mmol/L (98-107); Estimated Glomerular Filt Rate > 60.0 mL/min (>60); Glucose 176 mg/dL (80-110); HEMOLYSIS < 15 (0-50); Potassium 3.1 mmol/L (3.4-5.1); Sodium 132 mmol/L (137-145)
== END ==
PROVIDERS: PCP Internal Medicine; Referring Provider Internal Medicine; Visit Provider Internal Medicine
DX: E11.65 Type 2 diabetes mellitus with hyperglycemia (principal)
CPT/HCPCS: 36415; 80048; 83036

== ENCOUNTER → 2021-10-13 13:38 | Outpatient (CLI) | payer MEDICARE, OTHER, SELFPAY ==
[2021-10-13 17:22] LABS: COVID19 -Nasal RAPID Negative (Negative)
== END ==
PROVIDERS: PCP Internal Medicine; Referring Provider Physician Assistant; Visit Provider Physician Assistant
DX: Z01.812 Encounter for preprocedural laboratory examination (principal); Z20.822 Contact with and (suspected) exposure to COVID-19
CPT/HCPCS: 87635; C9803

== ENCOUNTER 2021-10-14 07:33 | Day surgery (SDC) | payer MEDICARE, OTHER, SELFPAY ==
[2021-10-14] VITALS (7 sets, daily range): BP systolic 96–138; BP diastolic 47–82; PULSE 65–87; RESP 12–16; TEMP 36.1–36.5; O2SAT 96–98; BMI 35.2
--- NOTE | 2021-10-14 | PATH_ITS ---
[facility] Accession Number: [id number] . 01 Material submitted: . PART A: colon - RANDOM COLON PART B: rectum - RECTAL POLYP X1 . 02 Diagnosis: A. Random Colon, Biopsies: Lymphocytic colitis. Negative for granulomas, dysplasia and malignancy. . B. Rectum, Polyp x1, Biopsy: Tubular adenoma. MRV 10/16/2021 1342 Local . 02 Electronically signed: . Marta Valentino MD, Pathologist NPI- [id number] . 01 Gross description: . Part A: RANDOM COLON: Received in formalin are 3 fragment(s) of kaye, soft tissue measuring 0.4 x 0.3 x 0.2 cm to 0.2 x 0.2 x 0.1 cm submitted entirely in 1 cassette(s) Part B: RECTAL POLYP X1: Received in formalin is 1 fragment(s) of kaye, soft tissue measuring 0.3 x 0.3 x 0.3 cm submitted entirely in 1 cassette(s) /QBJ 10/15/2021 0633 Local . 02 Pathologist provided ICD-10: K52.89, D12.8 . 02 CPT . 381146, [id number] Performed at: 01 [facility] [address], [place], [place] [id number] MD Eligio Osorio MD Phone: [phone] Performed at: 02 [facility] [address] [place], [place] [id number] MD Marta Valentino MD Phone: [phone]
--- NOTE | 2021-10-14 08:06 | PM.HP.1 ---
History of Present Illness History of Present Illness Date Patient Seen: 10/14/21 Time Patient Seen: 08:07 Chief complaint: SDC Narrative: I reach you Dr. Mckeon's note. Stool studies are negative for C diff giardia or typical enteric pathogens. Fecal fat was slightly increased. Patient History Medical History Chronic renal failure, stage 2 (mild) Controlled type 2 diabetes mellitus without complication (09/29/11) Diverticulosis of large intestine (06/10/11) Erectile dysfunction Gastroesophageal reflux disease (06/10/11) Hyperlipidemia (06/10/11) Hypertension (06/10/11) Restless leg syndrome Family & Social History Family History Mother Type II diabetes mellitus Social History: household members spouse lives independently Yes caregiver/support person No Tobacco & Substance use: Smoking Status Former smoker alcohol intake current alcohol intake frequency 0-2 drinks per day Substance Use Type does not use Meds Home Medications and Allergies Home Medications Medication Instructions Recorded Confirmed Type ASPIRIN (Aspirin EC) 81 mg PO Q DAY #0 06/10/11 09/15/21 History Glucose: Home Monitoring Kit kit #1 02/02/17 09/15/21 Rx carbidopa ER 50 mg-levodopa 200 mg See Rx Instructions .ROUTE 11/04/20 09/15/21 Rx tablet,extended release .COMPLEX #180 tablet metoprolol succinate 100 mg 100 mg PO QDAY #90 tab 11/04/20 09/15/21 Rx tablet,extended release 24 hr (Toprol XL) omeprazole 40 mg capsule,delayed See Rx Instructions .ROUTE 11/04/20 09/15/21 Rx release .COMPLEX #180 cap ropinirole 0.5 mg tablet See Rx Instructions .ROUTE 11/04/20 09/15/21 Rx .COMPLEX #180 tablet metformin 500 mg tablet 500 mg PO BID #180 tab 01/21/21 09/15/21 Rx sildenafil (pulm.hypertension) 20 40 - 100 mg PO DAILY PRN #40 tab 01/21/21 09/15/21 Rx mg tablet sucralfate 1 gram tablet 1 g PO QACHS #120 tab 05/26/21 09/15/21 Rx carbidopa 25 mg-levodopa 100 mg 1 tab PO BEDTIME #90 tab 06/17/21 09/15/21 Rx tablet atorvastatin 20 mg tablet (Lipitor) 20 mg PO DAILY #90 tab 08/29/21 09/15/21 Rx hydrochlorothiazide 25 mg tablet 25 mg PO QDAY #90 tab 08/29/21 09/15/21 Rx lisinopril 40 mg tablet 40 mg PO DAILY #90 tab 08/29/21 09/15/21 Rx potassium chloride 10 mEq 10 meq PO DAILY #90 tab 09/15/21 09/15/21 Rx tablet,extended release Allergies Allergy/AdvReac Type Severity Reaction Status Date / Time oxycodone [OXYCODONE] Allergy Intermediate mental Verified 09/15/21 10:21 change Review of Systems Review of Systems ROS: Yes All systems reviewed with the patient and are negative except as otherwise documented Exam Const General: cooperative and comfortable Orientation: alert HENMT Head: normocephalic Ears: external ears normal Nose: external nose normal Face and sinus: normal facial exam Mouth: oral mucosae normal Eyes General: appearance normal, both eyes and all related structures Neck Neck: normal visual inspection Chest Chest: normal inspection of the chest Resp Effort & Inspection: normal respiratory effort Cardio Rate: regular rate GI Inspection: normal to inspection Skin General: no rashes or lesions noted and No jaundice Neuro General: patient alert and moves all extremities Cognition: normal cognition Speech: speech normal Extrem General: no pedal edema Psych Appearance: grossly normal Assessment & Plan Assessment & Plan narrative: 76-year-old male with approximately 6-7 weeks of diarrhea unexplained. Fecal fat is slightly elevated. Colonoscopy is arranged for today. Time Spent With Patient Critical Care time: I spent a total of [] minutes of critical care time on this patient's care today; this time is exclusive of procedural time.
--- NOTE | 2021-10-14 08:10 | PM.PREOP ---
Pre-operative Note COVID-19 COVID-19 status: Negative Result date/Date tested (Pos, Neg/Pending): 10/13/21 Interval Note History & Physical reviewed/Exam performed by Physician: Yes Changes to H&P: Yes ASA Class (for procedural sedation): II
[2021-10-14] MEDS: SODIUM CHLORIDE 0.9% 1,000 ML 84 ML IV (08:36)
--- NOTE | 2021-10-14 09:28 | PM.OP.COLON ---
Operative Date/Time/Diagnoses Date of procedure: 10/14/21 Time of procedure: 09:29 Pre-op diagnosis: Diarrhea Post-op diagnosis: same Procedure & Clinicians Study performed: Colonoscopy with biopsies and cold forceps polypectomy Same procedure as scheduled: Yes Indications: Diarrhea Surgeon: Nasir Barreto Procedure Notes SCOAP/Timeout: Done Procedure in detail: After the risks and benefits were explained, written and verbal informed consent was obtained. The patient was brought into the procedure room and placed into the left lateral decubitus position. Please see nurse yarding supervisor notes for sedation details. The scope was introduced into the mouth through the bite block and advanced under direct visualization to the 2nd portion of the duodenum. The scope was slowly withdrawn carefully examining the mucosa for any defects or lesions. Retroflexed views were accomplished in the stomach. The stomach was decompressed, the scope was then removed from the patient who tolerated the procedure well. Adult colonoscope Bowel prep adequate Scope withdrawal time: 11 minutes Sedation minutes: 19 Complications: none Impression: There was a widely patent subtle anastomosis in the 20 cm from the anal verge range consistent with prior sigmoid colectomy. There was a diminutive polyp in the rectum removed with cold forceps. I did not appreciate any macroscopic colitis throughout. Random colon biopsies were taken for exclusion of microscopic disease. The terminal ileum was interrogated and appeared visually normal. Endoscopic diagnosis 1. Patent sigmoid anastomosis 2. Diminutive rectal polyp Post-procedure Plan for aftercare: 1. Await histopathology 2. Follow-up GI clinic with 3. If the polyp is return adenomatous, repeat colonoscopy will be suggested for 5 years time. Disposition: PACU
== END 2021-10-14 10:10 | disposition home or self-care (01) ==
LOC: ENDO 07:37
PROVIDERS: PCP Internal Medicine; Referring Provider Internal Medicine Gastroenterology; Visit Provider Internal Medicine Gastroenterology
PROC: 0DJD8ZZ Inspection of Lower Intestinal Tract, Via Natural or Artificial Opening Endoscopic (ICD-10-PCS; CPT 45378; principal; 2021-10-14 09:00)
DX: K52.89 Other specified noninfective gastroenteritis and colitis (principal); E11.9 Type 2 diabetes mellitus without complications; Z79.84 Long term (current) use of oral hypoglycemic drugs; I12.9 Hypertensive chronic kidney disease with stage 1 through stage 4 chronic kidney disease, or unspecified chronic kidney disease; N18.2 Chronic kidney disease, stage 2 (mild); E78.5 Hyperlipidemia, unspecified; G25.81 Restless legs syndrome; K57.30 Diverticulosis of large intestine without perforation or abscess without bleeding; D12.8 Benign neoplasm of rectum
CPT/HCPCS: 45380; J2704

== ENCOUNTER → 2021-10-20 09:53 | Outpatient (CLI) | payer MEDICARE, OTHER, SELFPAY ==
[2021-10-20 11:06] LABS: BUN Creatinine Ratio 15.4 (6-22); Blood Urea Nitrogen 16 mg/dL (9-20); Calcium 10.3 mg/dL (8.4-10.2); Carbon Dioxide 32 mmol/L (22-32); Chloride 99 mmol/L (98-107); Estimated Glomerular Filt Rate > 60.0 mL/min (>60); Glucose 145 mg/dL (80-110); HEMOLYSIS < 15 (0-50); Magnesium 1.2 mg/dL (1.6-2.3); Potassium 3.5 mmol/L (3.4-5.1); Sodium 134 mmol/L (137-145)
== END ==
PROVIDERS: PCP Internal Medicine; Referring Provider Internal Medicine; Visit Provider Internal Medicine
DX: E87.6 Hypokalemia (principal); I10 Essential (primary) hypertension
CPT/HCPCS: 36415; 80048; 83735

== ENCOUNTER → 2021-12-18 08:34 | Outpatient (CLI) | payer MEDICARE, OTHER, SELFPAY ==
[2021-12-18 10:08] LABS: COVID19 -Nasal RAPID Negative (Negative)
== END ==
PROVIDERS: PCP Internal Medicine; Referring Provider Internal Medicine; Visit Provider Internal Medicine
DX: Z20.822 Contact with and (suspected) exposure to COVID-19 (principal)
CPT/HCPCS: 87635; C9803

== ENCOUNTER → 2021-12-18 08:35 | Outpatient (CLI) | payer MEDICARE, OTHER, SELFPAY ==
--- NOTE | 2021-12-25 12:01 | PM.PFT.1 ---
Pulmonary Function Test Referral & Results Date Patient Seen: 12/18/21 Requesting provider: Brian Pedraza Results: The spirometry demonstrates an FVC of 3.46 L which is 82% of predicted. The FEV1 was measured at 2.74 L which is 89% of predicted. The FEV1/FVC ratio was 79 which is 110% of predicted. Following the administration of bronchodilator there was no appreciable change Lung volumes show an SVC of 3.67 L which is 81% of predicted. The diffusing capacity was measured at 29.31 which is 90% of predicted. The maximum voluntary ventilation was normal Interpretation: This study demonstrates normal pulmonary function Patient also had PFTs performed in July 2019, which were similarly normal
== END ==
PROVIDERS: PCP Internal Medicine; Referring Provider Internal Medicine; Visit Provider Internal Medicine
DX: R06.02 Shortness of breath (principal); Z87.891 Personal history of nicotine dependence; Z20.822 Contact with and (suspected) exposure to COVID-19; E11.9 Type 2 diabetes mellitus without complications; N18.2 Chronic kidney disease, stage 2 (mild); I10 Essential (primary) hypertension
CPT/HCPCS: 36415; 71046; 80053; 83036; 87635; 94060; 94726; 94729; C9803

== ENCOUNTER → 2021-12-18 08:36 | Outpatient (CLI) | payer MEDICARE, OTHER, SELFPAY ==
--- NOTE | 2021-12-18 08:38 | DI.RAD.S_ITS ---
PROCEDURE: XR CHEST 2V INDICATIONS: cough TECHNIQUE: 2 views of the chest were acquired. COMPARISON: [facility], CR, XR CHEST 2V, 08/17/2019, 9:39. FINDINGS: Surgical changes and devices: None. Lungs and pleura: Lungs are clear. No pleural effusions or pneumothorax. Mediastinum: Mediastinal contours are normal. Heart size is normal. Bones and chest wall: Chronic right rib fractures are unchanged. No suspicious bony abnormalities. Soft tissues appear unremarkable. IMPRESSION: No acute cardiopulmonary disease process. Dictated by: Shakira Diaz MD, PhD on 12/18/2021 at 10:46 Approved by: Shakira Diaz MD, PhD on 12/18/2021 at 10:47
[2021-12-18 10:40] LABS: Hemoglobin A1C% w Est Avg Glu 7.4 % (4.0-6.0)
[2021-12-18 10:41] LABS: Alanine Aminotransferase 13 IU/L (<50); Albumin 3.9 g/dL (3.5-5.0); Albumin Globulin Ratio 1.9 (1.0-2.8); Alkaline Phosphatase 90 U/L (38-126); Aspartate Aminotransferase 27 IU/L (17-59); BUN Creatinine Ratio 21.9 (6-22); Bilirubin Total 0.7 mg/dL (0.2-1.3); Blood Urea Nitrogen 25 mg/dL (9-20); Calcium 9.6 mg/dL (8.4-10.2); Carbon Dioxide 27 mmol/L (22-32); Chloride 103 mmol/L (98-107); Estimated Glomerular Filt Rate > 60.0 mL/min (>60); Globulin 2.1 g/dL (1.7-4.1); Glucose 163 mg/dL (80-110); HEMOLYSIS < 15 (0-50); Potassium 3.7 mmol/L (3.4-5.1); Sodium 137 mmol/L (137-145)
== END ==
PROVIDERS: PCP Internal Medicine; Referring Provider Internal Medicine; Visit Provider Internal Medicine
DX: E11.9 Type 2 diabetes mellitus without complications (principal); N18.2 Chronic kidney disease, stage 2 (mild); I10 Essential (primary) hypertension
CPT/HCPCS: 36415; 71046; 80053; 83036

== ENCOUNTER → 2022-04-16 11:16 | Outpatient (CLI) | payer MEDICARE, OTHER, SELFPAY ==
[2022-04-16 12:26] LABS: BUN Creatinine Ratio 18.3 (6-22); Blood Urea Nitrogen 24 mg/dL (9-20); Calcium 9.8 mg/dL (8.4-10.2); Carbon Dioxide 32 mmol/L (22-32); Chloride 96 mmol/L (98-107); Estimated Glomerular Filt Rate 57 mL/min (>60); Glucose 208 mg/dL (80-110); HEMOLYSIS < 15 (0-50); Potassium 3.3 mmol/L (3.4-5.1); Sodium 135 mmol/L (137-145)
[2022-04-16 12:31] LABS: Hemoglobin A1C% w Est Avg Glu 9.4 % (4.0-6.0)
[2022-04-16 14:51] LABS: Magnesium 1.4 mg/dL (1.6-2.3)
== END ==
PROVIDERS: PCP Internal Medicine; Referring Provider Internal Medicine; Visit Provider Internal Medicine
DX: E11.65 Type 2 diabetes mellitus with hyperglycemia (principal); I10 Essential (primary) hypertension
CPT/HCPCS: 36415; 80048; 83036; 83735

== ENCOUNTER → 2022-07-17 10:28 | Outpatient (CLI) | payer MEDICARE, OTHER, SELFPAY ==
[2022-07-17 13:00] LABS: Hemoglobin A1C% w Est Avg Glu 6.2 % (4.0-6.0)
[2022-07-17 14:44] LABS: BUN Creatinine Ratio 20.4 (6-22); Blood Urea Nitrogen 21 mg/dL (9-20); Calcium 9.8 mg/dL (8.4-10.2); Carbon Dioxide 30 mmol/L (22-32); Chloride 95 mmol/L (98-107); Estimated Glomerular Filt Rate > 60 mL/min (>60); Glucose 125 mg/dL (80-110); HEMOLYSIS < 15 (0-50); Potassium 3.3 mmol/L (3.4-5.1); Sodium 134 mmol/L (137-145)
== END ==
PROVIDERS: PCP Internal Medicine; Referring Provider Internal Medicine; Visit Provider Internal Medicine
DX: E11.65 Type 2 diabetes mellitus with hyperglycemia (principal); I10 Essential (primary) hypertension
CPT/HCPCS: 36415; 80048; 83036

== ENCOUNTER → 2022-11-04 11:10 | Outpatient (CLI) | payer MEDICARE, OTHER, SELFPAY ==
[2022-11-04 11:35] LABS: Hemoglobin A1C% w Est Avg Glu 6.7 % (4.0-6.0)
[2022-11-04 11:54] LABS: BUN Creatinine Ratio 22.4 (6-22); Blood Urea Nitrogen 24 mg/dL (9-20); Estimated Glomerular Filt Rate > 60 mL/min (>60)
== END ==
PROVIDERS: PCP Internal Medicine; Referring Provider Internal Medicine; Visit Provider Internal Medicine
DX: E11.65 Type 2 diabetes mellitus with hyperglycemia (principal)
CPT/HCPCS: 36415; 82565; 83036; 84520

== ENCOUNTER → 2022-11-16 07:55 | Outpatient (CLI) | payer MEDICARE, OTHER, SELFPAY ==
--- NOTE | 2022-11-16 07:56 | DI.ECHO.S_ITS ---
[place] [facility]---------+ [facility] +---------+ : : [address] : : : : [id number] : : : : Phone: [phone] Echocardiogram Report + + :Name: EDY POLANCO Study Date: 11/16/2022 Height: 70 in : :[facility] [employer] [facility] ReadingLocation: Weight: 195 lb : : Gender: Male BSA: 2.1 m2 : :: 1945 Age: 77 yrs BP: 158/88 mmHg: :Reason For Study: Dyspnea on exertion : :Ordering Physician: JANES, : :VEDA Faustin Performed By: Elodia Orr : :Referring: VEDA MARRERO : + + Interpretation Summary Mild concentric left ventricular hypertrophy with ejection fraction 55-60%.. Mild mitral regurgitation. Comparison is made with the echocardiogram of 08/29/2019, there has been no significant change. Procedure: A two-dimensional transthoracic echocardiogram with color flow and Doppler was performed. The study quality was technically good. Comparison is made with the echocardiogram of 08/29/2019. The patient was in sinus bradycardia with heart rates between 51-60 bpm during the exam. Left Ventricle: The left ventricle is normal in size. There is mild concentric left ventricular hypertrophy. The ejection fraction is estimated to be 55-60%. This is unchanged compared to the previous study. There are no focal wall motion abnormalities. Right Ventricle: The right ventricle is normal in size and function. Mitral Valve: The mitral valve is normal in structure but abnormal in function. There is mild mitral regurgitation. There are multiple regurgitant jets present. Aortic Valve: The aortic valve is normal in structure and function. Tricuspid Valve: The tricuspid valve is normal in structure and function. There is trace tricuspid regurgitation. Pulmonic Valve: The pulmonic valve leaflets are thin and pliable; valve motion is normal. There is a trace or physiologic amount of pulmonic regurgitation. Great Vessels: The IVC is dilated (diameter is greater than 2.1 cm) yet it collapses greater than 50% with a sniff. This suggests a right atrial pressure of 8 mm Hg. Pericardium/ Pleura There is no pericardial effusion. There is no pleural effusion. MMode/2D Measurements & Calculations LVIDd: 5.0 cm LVOT diam: 2.1 cm LVIDs: 3.6 cm Ao root diam: 3.7 cm FS: 28.0 % asc Aorta Diam: 3.3 cm EPSS: 0.50 cm IVSd: 1.3 cm LVPWd: 1.2 cm LV collado. diameter/BSA (cm/m^2): 2.4 LV sys. diameter/BSA (cm/m^2): 1.7 LA dimension: 4.2 cm RA long axis: 4.5 cm LA A2 area: 21.8 cm2 RA area: 14.5 cm2 LA A4 area: 19.8 cm2 RA vol: 39.5 ml LA length (vol): 5.4 cm RA : 19.1 ml/m2 LA vol: 67.5 ml LA vol index: 32.7 ml/m2 RVD1 (basal): 3.4 cm LVLs ap4: 6.9 cm LVLd ap2: 8.0 cm TAPSE_phl: 2.4 cm LVLs ap2: 6.9 cm Doppler Measurements & Calculations Ao V2 max: 126.0 cm/sec LVOT Max Stevan: 97.3 cm/sec Ao V2 mean: 85.1 cm/sec LV V1 max P.8 mmHg Ao max P.0 mmHg LV V1 VTI: 24.5 cm Ao mean P.0 mmHg TEA(I,D): 2.8 cm2 Ao V2 VTI: 29.9 cm TEA(V,D): 2.7 cm2 sev ratio: 0.82 TEA indexed to BSA (cm^2/m^2): 1.4 MV E max stevan: 63.4 cm/sec TR max stevan: 228.0 cm/sec MV A max stevan: 75.4 cm/sec TR max P.8 mmHg MV E/A: 0.84 PA V2 max: 79.3 cm/sec Med Peak E' Stevan: 5.6 cm/sec PA V2 mean: 52.2 cm/sec E/E' med: 11.3 PA mean P.0 mmHg Lat Peak E' Stevan: 8.1 cm/sec E/E' lat: 7.8 E/e' average: 9.6 MV dec time: 0.23 sec MVA(VTI): 3.1 cm2 MV V2 mean: 44.9 cm/sec SV(LVOT): 84.9 ml MV mean P.0 mmHg MV V2 VTI: 27.5 cm AV VR_phl: 0.77 TEA(VTI)/BSA_phl: 1.4 Electronically signed by: Joe Perdomo on Reading Physician:11/16/2022 02:41 PM
--- NOTE | 2022-11-16 07:56 | DI.NM.S_ITS ---
PROCEDURE: NM ESTRELLA PERF SPECT REST & STR Rest and exercise myocardial perfusion SPECT with gated imaging and ejection fraction RADIOPHARMACEUTICAL: 11.2 mCi Tc-99m sestamibi IV at rest and 25.2 mCi Tc-99m sestamibi IV at peak exercise. A [id number]-jyoklksp was performed. INDICATIONS: dyspnea upon exertion TECHNIQUE: Radiopharmaceutical was injected at peak stress test, and also at rest. SPECT images were obtained. SPECT myocardial perfusion images were displayed in short axis, horizontal long axis, and vertical long axis views. Gated images were reviewed using [employer] software. COMPARISON: None. CARDIAC STRESS: A standard Jatin treadmill exercise tolerance test was performed by the patient under the supervision of an attending staff. The patient exercised for 5 minutes and 19 seconds; 7.0 METS; functional aerobic impairment (ANTOINE) is +10% on sedentary scale. Hemodynamic data: There is normal blood pressure and heart rate response to exercise stress. Patient achieved 92% of maximum predicted heart rate at peak exercise. Symptoms: Patient observed to have dyspnea out of proportion to workload. EKG: No diagnostic EKG changes of ischemia; no ectopy. FINDINGS: Raw data: There is good myocardial labeling by radiotracer. No significant motion artifacts. Mifa-yt-hhnvw ratio is 0.27 (normal is less than 0.38 for sestamibi tracer, and less than 0.50 for thallium tracer). Left ventricle function: Gated images demonstrate normal left ventricle wall thickening. No segmental wall motion abnormality. No transient ischemic dilation; TID is 0.81 (normal less than 1.3). The left ventricle resting end-diastolic volume is 121 mL. Left ventricle stress ejection fraction is > 75%; normal values are above 45%. Myocardial perfusion: There is normal distribution of activity in the left and right ventricular myocardium. No fixed or reversible perfusion defects. IMPRESSION: Low risk study. No evidence of exercise-induced ischemia on ECG or SPECT imaging. Normal LV function. Accelerated heart rate and borderline hypertensive response to exercise. Patient observed to have dyspnea out of proportion to workload. Dictated by: Tonie Falk D.O. on 11/17/2022 at 16:30 Approved by: Tonie Falk D.O. on 11/17/2022 at 16:35
--- NOTE | 2022-11-16 14:18 | PM.TREADMILL ---
Cardiac Stress Test Report Referral & Results Date Patient Seen: 11/16/22 Requesting provider: Brian Pedraza Indication: Dyspnea with exertion Rest ECG: Unremarkable Procedure Note: Today following both written and verbal informed consent the patient was exercised according to a standard Jatin protocol patient went for a total of 5 minutes 19 seconds achieving a maximum heart rate of 133 maximum systolic blood pressure of 208. This is approximately 7.0 METS. Exercise was terminated at this point because of severe dyspnea and targets were achieved. Patient was also given Cardiolite through a previously started Hep-Lock IV by the diagnostic imaging staff approximately 1 minute prior to the cessation of exercise. There were no ST-T segment changes Rare PVCs including a couplet were noted Function aerobic impairment rates about 10% on the sedentary scale Impression: No evidence of ischemia Please see perfusion imaging report as well Based on my clinical impression while exercising patient he seems to have a primary pulmonary problem more than anything else, with significant wheezing and coughing as workload increased Please note: Actual ECG tracings can be found in the PACS system.
== END ==
PROVIDERS: PCP Internal Medicine; Referring Provider Internal Medicine; Visit Provider Internal Medicine
DX: I34.0 Nonrheumatic mitral (valve) insufficiency (principal); R07.9 Chest pain, unspecified; R06.09 Other forms of dyspnea
CPT/HCPCS: 78452; 93016; 93017; 93018; 93306; A9502

== ENCOUNTER → 2022-11-26 13:11 | Outpatient (CLI) | payer MEDICARE, OTHER, SELFPAY ==
--- NOTE | 2022-12-01 14:15 | PM.PFT.1 ---
Pulmonary Function Test Referral & Results Date Patient Seen: 11/26/22 Requesting provider: Brian Pedraza Results: The spirometry demonstrates an FVC of 2.70 L which is 64% of predicted. The FEV1 was measured at 2.18 L which is 72% of predicted. The FEV1/FVC ratio was 81 which is 112% of predicted. Following the administration of bronchodilator there was 24% improvement in FEF 25-75%. Lung volumes show an SVC of 3.30 L which is 73% of predicted. The diffusing capacity was measured at 30.34 which is 93% of predicted. The maximum voluntary ventilation was slightly reduced Interpretation: This study demonstrates possibly mild obstructive lung disease based on reduction FEV1 although FEV1/FVC ratio is preserved. There is also some limited evidence of benefit in small airway flow post bronchodilator as above There is a minimal reduction in lung volumes suggesting minimal restrictive lung disease Compared to PFTs performed in December 2021, current study shows slight decline in FEV1 and SVC Clinical correlation suggested
== END ==
PROVIDERS: PCP Internal Medicine; Referring Provider Internal Medicine; Visit Provider Internal Medicine
DX: R06.02 Shortness of breath (principal); Z87.891 Personal history of nicotine dependence; J98.8 Other specified respiratory disorders
CPT/HCPCS: 94060; 94726; 94729

== ENCOUNTER → 2023-08-12 11:13 | Outpatient (CLI) | payer MEDICARE, OTHER, SELFPAY ==
[2023-08-12 12:43] LABS: Hemoglobin A1C% w Est Avg Glu 8.1 % (4.0-6.0)
[2023-08-12 12:52] LABS: BUN Creatinine Ratio 18.8 (6-22); Blood Urea Nitrogen 22 mg/dL (9-20); Calcium 8.7 mg/dL (8.4-10.2); Carbon Dioxide 29 mmol/L (22-32); Chloride 93 mmol/L (98-107); Estimated Glomerular Filt Rate > 60 mL/min (>60); Glucose 161 mg/dL (80-110); HEMOLYSIS < 15 (0-50); Magnesium 1.4 mg/dL (1.6-2.3); Potassium 3.2 mmol/L (3.4-5.1); Sodium 130 mmol/L (137-145)
[2023-08-12 15:35] LABS: Creatinine Urine Random 206.8 mg/dL
[2023-08-12 15:36] LABS: Microalbumi Creatinin Ratio Ur 63.3 ug/mg CR (<30); Microalbumin Urine Random 13.1 mg/dL (0-1.6)
== END ==
PROVIDERS: PCP Internal Medicine; Referring Provider Internal Medicine; Visit Provider Internal Medicine
DX: E11.9 Type 2 diabetes mellitus without complications (principal); I10 Essential (primary) hypertension; N18.31 Chronic kidney disease, stage 3a
CPT/HCPCS: 36415; 80048; 82043; 82570; 83036; 83735

== ENCOUNTER → 2023-09-07 09:35 | Outpatient (CLI) | payer MEDICARE, OTHER, SELFPAY ==
[2023-09-07 11:50] LABS: BUN Creatinine Ratio 17.9 (6-22); Blood Urea Nitrogen 20 mg/dL (9-20); Carbon Dioxide 29 mmol/L (22-32); Chloride 100 mmol/L (98-107); Estimated Glomerular Filt Rate > 60 mL/min (>60); Glucose 122 mg/dL (80-110); HEMOLYSIS < 15 (0-50); Magnesium 1.6 mg/dL (1.6-2.3); Sodium 135 mmol/L (137-145)
== END ==
PROVIDERS: PCP Internal Medicine; Referring Provider Internal Medicine; Visit Provider Internal Medicine
DX: N18.31 Chronic kidney disease, stage 3a (principal); E87.6 Hypokalemia; E83.42 Hypomagnesemia
CPT/HCPCS: 36415; 80048; 83735

== ENCOUNTER → 2023-12-22 10:16 | Outpatient (CLI) | payer MEDICARE, OTHER, SELFPAY ==
[2023-12-22 11:27] LABS: Alanine Aminotransferase 11 IU/L (<50); Albumin Globulin Ratio 1.7 (1.0-2.8); Alkaline Phosphatase 105 U/L (38-126); Aspartate Aminotransferase 25 IU/L (17-59); BUN Creatinine Ratio 22.6 (6-22); Bilirubin Total 0.6 mg/dL (0.2-1.3); Blood Urea Nitrogen 24 mg/dL (9-20); Calcium 8.6 mg/dL (8.4-10.2); Carbon Dioxide 23 mmol/L (22-32); Chloride 101 mmol/L (98-107); Estimated Glomerular Filt Rate > 60 mL/min (>60); Globulin 2.3 g/dL (1.7-4.1); Glucose 200 mg/dL (80-110); HEMOLYSIS < 15 (0-50); Hemoglobin A1C% w Est Avg Glu 6.8 % (4.0-6.0); Magnesium 1.5 mg/dL (1.6-2.3); Sodium 132 mmol/L (137-145); Total Protein 6.3 g/dL (6.3-8.2)
== END ==
PROVIDERS: PCP Internal Medicine; Referring Provider Internal Medicine; Visit Provider Internal Medicine
DX: E11.9 Type 2 diabetes mellitus without complications (principal); N18.31 Chronic kidney disease, stage 3a; I10 Essential (primary) hypertension; E78.5 Hyperlipidemia, unspecified
CPT/HCPCS: 36415; 80053; 83036; 83735

== ENCOUNTER → 2024-07-05 10:15 | Outpatient (CLI) | payer MEDICARE, OTHER, SELFPAY ==
[2024-07-05 11:22] LABS: Add Manual Diff / Slide Review NO; Basophils Absolute Auto 100 /uL (0-100); Eosinophils Absolute Auto 300 /uL (0-450); Eosinophils Percent Auto 5.6 % (2-4); Hematocrit 44.5 % (41-53); Lymphocytes Absolute Auto 1000 /uL (1100-4500); Lymphocytes Percent Auto 18.2 % (25-40); Mean Corpuscular HGB Conc 33.8 % (30-36); Mean Corpuscular Hemoglobin 28.5 PG (26-34); Mean Corpuscular Volume 84.3 fL (80-100); Monocytes Absolute Auto 400 /uL (0-900); Monocytes Percent Auto 7.3 % (3-14); Neutrophils Absolute Auto 3600 /uL (1500-7000); Neutrophils Percent Auto 67.9 % (50-75); Platelet Count 143 X10^3/uL (150-400); Red Blood Cell Count 5.28 X10^6/uL (4.5-5.9); Red Cell Distribution Width 13.8 % (11.6-14.8); White Blood Cell Count 5.2 X10^3/uL (4.5-11.0)
[2024-07-05 11:56] LABS: Hemoglobin A1C% w Est Avg Glu 6.5 % (4.0-6.0)
[2024-07-05 12:03] LABS: Alanine Aminotransferase 17 IU/L (<50); Albumin Globulin Ratio 1.7 (1.0-2.8); Alkaline Phosphatase 107 U/L (38-126); Aspartate Aminotransferase 27 IU/L (17-59); BUN Creatinine Ratio 21.4 (6-22); Bilirubin Total 0.7 mg/dL (0.2-1.3); Blood Urea Nitrogen 25 mg/dL (9-20); Calcium 9.1 mg/dL (8.4-10.2); Carbon Dioxide 24 mmol/L (22-32); Chloride 102 mmol/L (98-107); Cholesterol 117 mg/dL (140-199); Estimated Glomerular Filt Rate > 60 mL/min (>60); Globulin 2.3 g/dL (1.7-4.1); Glucose 125 mg/dL (80-110); HDL Cholesterol 53 mg/dL (40-60); HEMOLYSIS < 15 (0-50); LDL Cholesterol Calculated 55 mg/dL (<100); Potassium 4.3 mmol/L (3.4-5.1); Sodium 134 mmol/L (137-145); Total Protein 6.3 g/dL (6.3-8.2); Triglycerides 46 mg/dL (35-150)
== END ==
PROVIDERS: PCP Internal Medicine; Referring Provider Internal Medicine; Visit Provider Internal Medicine
DX: N18.31 Chronic kidney disease, stage 3a (principal); E11.9 Type 2 diabetes mellitus without complications; I10 Essential (primary) hypertension
CPT/HCPCS: 36415; 80053; 80061; 83036; 85025

== ENCOUNTER → 2025-01-05 08:50 | Outpatient (CLI) | payer MEDICARE, OTHER, SELFPAY ==
[2025-01-05 11:53] LABS: Alanine Aminotransferase 14 IU/L (<50); Albumin 4.3 g/dL (3.5-5.0); Albumin Globulin Ratio 2.2 (1.0-2.8); Alkaline Phosphatase 104 U/L (38-126); Aspartate Aminotransferase 25 IU/L (17-59); BUN Creatinine Ratio 22.2 (6-22); Bilirubin Total 0.6 mg/dL (0.2-1.3); Blood Urea Nitrogen 26 mg/dL (9-20); Calcium 8.9 mg/dL (8.4-10.2); Carbon Dioxide 26 mmol/L (22-32); Chloride 101 mmol/L (98-107); Cholesterol 134 mg/dL (140-199); Estimated Glomerular Filt Rate > 60 mL/min (>60); Glucose 138 mg/dL (80-110); HDL Cholesterol 48 mg/dL (40-60); HEMOLYSIS < 15 (0-50); LDL Cholesterol Calculated 70 mg/dL (<100); Potassium 4.1 mmol/L (3.4-5.1); Sodium 137 mmol/L (137-145); Total Protein 6.3 g/dL (6.3-8.2); Triglycerides 79 mg/dL (35-150)
[2025-01-05 12:37] LABS: Hemoglobin A1C% w Est Avg Glu 6.1 % (4.0-6.0)
== END ==
PROVIDERS: PCP Internal Medicine; Referring Provider Internal Medicine; Visit Provider Internal Medicine
DX: E11.9 Type 2 diabetes mellitus without complications (principal); E78.5 Hyperlipidemia, unspecified; I10 Essential (primary) hypertension
CPT/HCPCS: 36415; 80053; 80061; 83036

== ENCOUNTER → 2025-07-24 08:46 | Outpatient (CLI) | payer MEDICARE, OTHER, SELFPAY ==
[2025-07-24 10:02] LABS: Hemoglobin A1C% w Est Avg Glu 6.8 % (4.0-6.0)
[2025-07-24 10:18] LABS: Alanine Aminotransferase 8 IU/L (<50); Albumin 4.2 g/dL (3.5-5.0); Albumin Globulin Ratio 1.9 (1.0-2.8); Alkaline Phosphatase 106 U/L (38-126); Blood Urea Nitrogen 25 mg/dL (9-20); Calcium 8.9 mg/dL (8.4-10.2); Carbon Dioxide 30 mmol/L (22-32); Chloride 100 mmol/L (98-107); Cholesterol 128 mg/dL (140-199); Estimated Glomerular Filt Rate 52 mL/min (>60); Globulin 2.2 g/dL (1.7-4.1); Glucose 157 mg/dL (70-99); HDL Cholesterol 54 mg/dL (40-60); HEMOLYSIS < 15 (0-50); Potassium 4.1 mmol/L (3.4-5.1); Sodium 135 mmol/L (137-145); Total Protein 6.4 g/dL (6.3-8.2); Triglycerides 82 mg/dL (35-150)
== END ==
PROVIDERS: PCP Internal Medicine; Referring Provider Internal Medicine; Visit Provider Internal Medicine
DX: E11.9 Type 2 diabetes mellitus without complications (principal); I10 Essential (primary) hypertension; E78.5 Hyperlipidemia, unspecified
CPT/HCPCS: 36415; 80053; 80061; 83036